=== PATIENT | female | born 1980 | race Caucasian/White ===

== ENCOUNTER 2023-06-18 07:47 | Outpatient (CLI) | payer MEDICARE, OTHER ==
[~2023-06-18] VITALS: Ht 155 cm; Wt 64.5 kg
[2023-06-18] MEDS ORDERED: NS Flush 10 ML SYRINGE PRN ICA (08:00)
[2023-06-18 08:04] VITALS: BP 119/60; PULSE 82; TEMP 98.3
[2023-06-18] MEDS ORDERED: ZOFRAN 4MG T4 MG/TAB PO (08:14)
[2023-06-18] MEDS ORDERED: EFFEXOR 3737.5 MG/TA PO (08:15)
[2023-06-18] MEDS ORDERED: AMBIEN 5MG TABLE5 MG PO (08:15)
[2023-06-18] MEDS ORDERED: NS Flush 10 ML SYRINGE BID ICA SCH (09:00)
--- NOTE | 2023-06-18 09:16 | NUR ---
Please see merge documentation for record of tilt table test with Dr. Gardner.
[2023-06-18 10:15] VITALS: BP 115/62; PULSE 86
--- NOTE | 2023-06-18 10:18 | NUR ---
Dasha was transferred back to express unit rm 9 after tilt table test. Pt hooked up for post procedure vitals, bedside report and handoff of care to Jeanine AKBAR.
[2023-06-18 10:30] VITALS: BP 115/70; PULSE 92
[2023-06-18 10:45] VITALS: BP 108/65; PULSE 80
[2023-06-18 11:00] VITALS: BP 120/73; PULSE 74
[2023-06-18 11:30] VITALS: BP 108/58; PULSE 90
--- NOTE | 2023-06-18 12:07 | NUR ---
PT TOLERATED RECOVERY PERIOD WELL. VS REMAINED WITHIN NORMAL LIMITS. IV DISCONTINUED AND PT AMBULATED TO MAIN LOBBY WITH UPON DISCHARGE. PT VERBALIZED UNDERSTANDING OF DISCHARGE INSTRUCTIONS AND REMAINED FREE FROM CONCERNS AND COMPLAINTS.
== END 2023-06-18 11:45 | disposition home or self-care (01) ==
LOC: COL.CAR 07:47
DX: R00.2 Palpitations (principal); R00.0 Tachycardia, unspecified; R42 Dizziness and giddiness; Z93.3 Colostomy status